=== PATIENT | male | born 1975 | race Caucasian/White ===

== ENCOUNTER 2017-05-07 08:48 | Emergency (ER) | payer SELFPAY ==
[~2017-05-07] VITALS: Ht 177.8 cm; Wt 70.0 kg
[~2017-05-07 08:48] MED LIST: EPINEPHrine HCL (1:10,000) 1 MG/10 ML SYRINGE IV ONE
[2017-05-07 09:00] VITALS: O2SAT 0
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
== END 2017-05-07 14:50 | disposition expired ==
LOC: EDBD 08:48 → NEPI 08:48
DX: S01.93XA Puncture wound without foreign body of unspecified part of head, initial encounter (principal); I46.9 Cardiac arrest, cause unspecified; Y22.XXXA Handgun discharge, undetermined intent, initial encounter
CPT/HCPCS: 92950; 99285; A0431; A0436; J0171